=== PATIENT | female | born 1950 | race Caucasian/White ===

== ENCOUNTER 2021-08-28 10:31 | Outpatient (CLI) | payer MEDICARE, SELFPAY ==
--- NOTE | 2021-08-28 10:30 | RT.EKG_ITS ---
APPROVED REPORT Exam: Resting ECG Reason for Exam: afib Patient Location: O HR:76 bpm ECG Measurements Heart Rate 76 AXIS ND [id number] P [id number] QRSd 117 QRS 88 QT 419 T -38 QTc 472 Conclusion Atrial fibrillation...V-rate 53-110, irreg A-activity Nonspecific intraventricular conduction delay...QRSd >115mS, not LBBB/RBBB
== END 2021-08-28 10:32 | disposition home or self-care (01) ==
LOC: DI.CARD 10:31
PROVIDERS: PCP Nurse Practitioner Family; Visit Provider Internal Medicine Cardiovascular Disease
DX: I48.91 Unspecified atrial fibrillation (principal); I48.92 Unspecified atrial flutter
CPT/HCPCS: 93010

== ENCOUNTER → 2022-03-05 14:44 | Outpatient (BNVA) | payer MEDICARE, SELFPAY | PROVIDERS: PCP Nurse Practitioner Family; Referring Provider Nurse Practitioner Family; Visit Provider Internal Medicine Cardiovascular Disease | DX: I48.91 Unspecified atrial fibrillation (principal) | CPT/HCPCS: 99214 ==

== ENCOUNTER 2022-06-09 13:27 | Emergency (ER) | payer MEDICARE, SELFPAY ==
[2022-06-09] VITALS (21 sets, daily range): BP systolic 101–139; BP diastolic 34–92; PULSE 65–95; RESP 14–23; TEMP 36.5; O2SAT 99
--- NOTE | 2022-06-09 13:30 | RT.EKG_ITS ---
APPROVED REPORT Exam: Resting ECG Reason for Exam: near syncope Patient Location: E HR:90 bpm ECG Measurements Heart Rate 90 AXIS VT [id number] P [id number] QRSd 118 QRS 89 QT 387 T -52 QTc 462 Conclusion Atrial fibrillation...V-rate 71-107, irreg A-activity Nonspecific intraventricular conduction delay...QRSd >115mS, not LBBB/RBBB Repol abnrm suggests ischemia, diffuse leads...ST-T neg, ant/lat/inf
[2022-06-09] MEDS: Lactated Ringers 1,000 ML 1000 ML IV (13:59)
[2022-06-09] MEDS: Ondansetron 4 MG/2 ML VIAL IVP (14:00)
[2022-06-09 14:07] LABS: Abs Immature Grans 0.03 10^3/uL (0.0-0.06); Absolute Basophil Count 0.03 10^3/uL (0.0-0.2); Absolute Eosinophil Count 0.02 10^3/uL (0.0-0.7); Absolute Lymphocyte Count 0.61 10^3/uL (1.2-3.4); Absolute Monocyte Count 0.33 10^3/uL (0.1-0.8); Absolute Neutrophil Count 8.39 10^3/uL (1.2-6.7); Basophils % 0.3; Eosinophils % 0.2; HCT 50.4 % (36.0-46.0); HGB 16.6 g/dL (11.2-15.7); Immature Grans % 0.3; Lymphocytes % 6.5; MCHC 32.9 % (32.0-36.0); MCV 94 fL (80-95); MPV 10.9 fL (8.0-11.0); Monocytes % 3.5; Neutrophils % 89.2; Platelet Count 206 10^3/uL (130-400); RBC 5.36 10^6/uL (3.93-5.22); RDW 12.5 % (11.7-14.6); RDW-SD 42.7 fL; WBC 9.41 10^3/uL (4.4-10.8)
[2022-06-09 14:23] LABS: ALT 49 U/L (14-59); AST 30 U/L (15-37); Albumin 4.4 g/dL (3.4-5.0); Alkaline Phosphatase 114 U/L (46-116); BUN 18 mg/dL (7-18); Bilirubin, Total 1.3 mg/dL (0.2-1.0); CREATININE 0.9 mg/dL (0.55-1.02); Calcium 9.5 mg/dL (8.5-10.1); Chloride 103 mmol/L (98-107); Estimated GFR 68.77 (mL/min/1.73m2); Glucose 135 mg/dL (74-106); Magnesium 2.4 mg/dL (1.8-2.4); Sodium 138 mmol/L (136-145); Troponin I < 50 ng/L (<or=60)
--- NOTE | 2022-06-09 14:41 | ED.GENADUL_ITS ---
Discharge Plan Disposition Patient Disposition: Home Condition: Stable Discharge Details Clinical Impression: Nausea & vomiting, Loose stools, Muscle cramping, Hyperbilirubinemia ED Provider: Dhruv Stanford Home Meds and New Rx's Prescriptions: New ondansetron 4 mg tablet,disintegrating 4 mg PO Q8H PRN (Reason: nausea and vomiting) Qty: 10 0RF Continued Eliquis 5 mg tablet 5 mg PO BID epinephrine 0.3 mg/0.3 mL auto-injector 0.3 mg IM ONCE Qty: 2 0RF Rx Instructions: as a single dose metoprolol succinate 25 mg tablet extended release 24 hr 25 mg PO DAILY Adult 50 Plus Probiotic 4 billion cell capsule 4,000 mmu cells PO DAILY Rx Instructions: administer with a meal No Action methyl guard tablet PO DAILY terrazyme PO omega 1-owo-pom-fish oil [Fish Oil] 1,000 mg (120 mg-180 mg) capsule 2 cap PO DAILY Discharge Instructions Instructions: Acute Nausea and Vomiting (ED), Acute Diarrhea (ED) Additional Instructions: Please use Zofran as prescribed for nausea. Drink small amounts of clear liquid fluid frequently in order to stay hydrated. You have to replete all fluid lost in your diarrhea. Allow for bowel rest: Maintain clear liquid diet tonight and tomorrow morning. You may advance to soft bland foods like rice tomorrow afternoon. Advance diet slowly thereafter. Please contact your primary care physician to arrange follow-up. Your bilirubin was slightly elevated today. You should have this rechecked. Return to the ER immediately for any worsening or new concerning symptoms. Discharge Data Discharge Date/Time-TO BE ENTERED AT DEPARTURE: 06/09/22 15:39 Medical Decision Making 0127 -- 72-year-old female with history of atrial fibrillation, atrial flutter, here with nausea, vomiting and diarrhea this morning and now cramping bilateral lower extremities. Patient had a presyncopal episode as well. Patient states she has had similar episodes commonly in the past with dehydration. Patient is hemodynamically stable. She is mentating well and in no respiratory distress. Screening EKG was reviewed and interpreted by me: Please report, atrial fibrillation, rate controlled 90 bpm. Consider electrolyte abnormalities. Labs reviewed and electrolytes appear within normal limits. Bilirubin is slightly elevated at 1.3. Patient receiving IV fluid bolus. She received Zofran IV for nausea. She did experience some cramping in her feet here in the emergency department. I will give Valium 2 mg p.o. -- Patient reassessed and feeling much better. Cramps improved. All results were discussed with the patient. Plan for discharge with outpatient follow-up. Patient was encouraged to drink small amounts of clear fluids to stay hydrated. Usual customary discharge instructions were reviewed HPI General Mode of arrival: ambulatory . Date/Time Provider Initiated Documentation: 06/09/22 13:47 . Limitations to Documentation: no limitations . Information obtained by: patient . HPI Narrative: 72-year-old female presents with chief complaint of leg cramps. Patient notes earlier this morning around 2 AM she woke up and had diarrhea. Later in the morning she experienced nausea and vomiting. She then developed severe cramps in her lower extremities. She went to the bathroom and felt faint while on the toilet. She transitioned herself to the floor and dizziness improved. Patient notes yesterday she was feeling a bit tired in the afternoon evening but otherwise had no GI symptoms. No recent dietary changes. No new medications. Patient is aware of GI bug going around in the community. Related Data Home Medications Medication Instructions Recorded Confirmed apixaban 5 mg tablet (Eliquis) 5 mg PO BID 06/29/20 06/09/22 epinephrine 0.3 mg/0.3 mL 0.3 mg (0.3 mL) IM ONCE #2 ea 06/29/20 06/09/22 injection, auto-injector omega 9-bnn-cqj-fish oil 1,000 mg 2 cap PO DAILY 07/05/21 04/29/22 (120 mg-180 mg) capsule (Fish Oil) lactobacillus combination no.9 4 4,000 mmu cells PO DAILY 08/28/21 06/09/22 billion cell capsule (Adult 50 Plus Probiotic) methyl guard PO DAILY 08/28/21 04/29/22 metoprolol succinate 25 mg 25 mg PO DAILY 08/28/21 06/09/22 tablet,extended release 24 hr terrazyme PO 08/28/21 04/29/22 ondansetron 4 mg disintegrating 4 mg PO Q8H PRN nausea and 06/09/22 tablet vomiting #10 tabs Previous Rx's Medication Instructions Recorded epinephrine 0.3 mg/0.3 mL 0.3 mg (0.3 mL) IM ONCE #2 ea 06/29/20 injection, auto-injector ondansetron 4 mg disintegrating 4 mg PO Q8H PRN nausea and 06/09/22 tablet vomiting #10 tabs Allergies Allergy/AdvReac Type Severity Reaction Status Date / Time No Known Allergies Allergy Verified 06/09/22 13:33 General Stated Complaint: Nausea/Vomit/Diar [place]: 3 Review of Systems All systems reviewed & are unremarkable except as noted in HPI and below Constitutional Constitutional: Denies fever(s) Cardiovascular Cardiovascular: Denies chest pain and Denies dyspnea Respiratory Respiratory: Denies dyspnea Gastrointestinal Gastrointestinal: Reports as per HPI Musculoskeletal Musculoskeletal: Reports muscle cramps (in feet bilaterally) PFSH All Active Problems (Updated 06/09/22 @ 15:25 by Dhruv Stanford MD) Nausea & vomiting (Acute) Loose stools (Acute) Muscle cramping (Acute) Hyperbilirubinemia (Acute) Foreign body in left ear (Acute) Impacted cerumen of both ears (Acute) Atrial flutter (Acute) Afib (Chronic) 02/17 cardioversion Tinnitus, bilateral (Acute) Sensorineural hearing loss of combined sites, bilateral (Acute) Family History Sister Atrial fibrillation and flutter Granddaughter No problems noted. Brother Heart disease OR as well as grandfather OR at 50 Social History Smoking/Tobacco Use Status: Never Smoking risk assessment performed?: Yes Alcohol Intake: current Alcohol Intake frequency: holidays/special occasions only Drug use: Never Substance use type: does not use Household members: spouse Do you feel safe at home: Yes Do you feel safe in your relationship?: Yes Exam Const General: cooperative and no acute distress HENMT Mouth: mucous membranes dry Eyes Conjunctivae: normal conjunctivae Sclera: normal sclerae Neck Neck: trachea midline and supple Resp Auscultation: clear to auscultation bilaterally, no rales, no rhonchi and no wheezes Cardio Rate: regular rate and not tachycardic Rhythm: regular rhythm Heart Sounds: S1 normal, S2 normal and no murmurs Pulses: dorsalis pedis present bilaterally 1+ GI Palpation: soft, not firm, no guarding, no masses, not rigid and nontender Skin General skin exam: no rashes or lesions noted Neuro General: patient alert, patient awake and tone normal Extrem General: no edema Psych Appearance: grossly normal Mental Status: mental status grossly normal Course Vital Signs Vital signs: Vital Signs Temperature 36.5 C 06/09/22 13:24 Pulse 86 06/09/22 13:24 Respiratory Rate 16 06/09/22 13:24 Blood Pressure 139/92 H 06/09/22 13:24 Pulse Oximetry 99 06/09/22 13:24 Temperature 36.5 C 06/09/22 13:24 Temperature Source Oral 06/09/22 13:24 Pulse 86 06/09/22 13:24 Respiratory Rate 16 06/09/22 13:24 Respiratory Effort Normal 06/09/22 13:32 Blood Pressure 139/92 H 06/09/22 13:24 Blood Pressure Position Sitting 06/09/22 13:24 Pulse Oximetry 99 06/09/22 13:24 Oxygen Delivery Method Room Air 06/09/22 13:24 Oxygen Flow Rate 0 06/09/22 13:24 Pain Level 0 06/09/22 13:24 Lab/Test Results Lab/Test Results: Laboratory Tests Range/Units 06/09/22 06/09/22 13:30 13:30 WBC (4.4-10.8) 10^3/uL 9.41 RBC (3.93-5.22) 10^6/uL 5.36 H Hgb (11.2-15.7) g/dL 16.6 H Hct (36.0-46.0) % 50.4 H MCV (80-95) fL 94 MCH (27.0-33.0) pg 31.0 MCHC (32.0-36.0) % 32.9 RDW (11.7-14.6) % 12.5 Plt Count (130-400) 10^3/uL 206 MPV (8.0-11.0) fL 10.9 Immature Gran % 0.3 Neutrophils % 89.2 Lymphocytes % 6.5 Monocytes % 3.5 Eosinophils % 0.2 Basophils % 0.3 Nucleated RBC % (0.0-0.3) % 0.0 Absolute Neutrophils (1.2-6.7) 10^3/uL 8.39 H Absolute Lymphocytes (1.2-3.4) 10^3/uL 0.61 L Absolute Monocytes (0.1-0.8) 10^3/uL 0.33 Absolute Eosinophils (0.0-0.7) 10^3/uL 0.02 Absolute Basophils (0.0-0.2) 10^3/uL 0.03 Sodium (136-145) mmol/L 138 Potassium (3.5-5.1) mmol/L 4.0 Chloride (98-107) mmol/L 103 Carbon Dioxide (21.0-32.0) mmol/L 26.0 Anion Gap (3-11) mmol/L 9.0 BUN (7-18) mg/dL 18 Creatinine (0.55-1.02) mg/dL 0.9 Est GFR (CKD-EPI 2020) (mL/min/1.73m2) 68.77 Glucose (74-106) mg/dL 135 H Calcium (8.5-10.1) mg/dL 9.5 Magnesium (1.8-2.4) mg/dL 2.4 Total Bilirubin (0.2-1.0) mg/dL 1.3 H AST (15-37) U/L 30 ALT (14-59) U/L 49 Alkaline Phosphatase (46-116) U/L 114 Troponin I (<or=60) ng/L < 50 Total Protein (6.4-8.2) g/dL 8.0 Albumin (3.4-5.0) g/dL 4.4 PAWSS Have you Been Recently Intoxicated or Drunk Within the Last 30 days?: No Have you Ever Experienced Previous Episodes of Alcohol Withdrawal?: No Have you ever Experienced Withdrawal Seizures?: No Have you ever Experienced Delirium Tremens(DT)s?: No Have you ever undergone Alcohol Rehabilitation Treatment (i.e, inpt ot outpatient treatment programs)?: No Have you ever Experienced Blackouts?: No Have you ever Combined Alcohol with other Downers within the last 90 days?: No Have you ever Combined Alcohol with any other Substance of Abuse during the last 90 days?: No Result: 0
[2022-06-09] MEDS: diazePAM 2 MG TAB PO (14:47)
[2022-06-09] MEDS: Lactated Ringers 500 ML IV (14:57)
== END 2022-06-09 15:39 | disposition home or self-care (01) ==
PROVIDERS: Emergency Provider Student in an Organized Health Care Education/Training Program
DX: R11.2 Nausea with vomiting, unspecified (principal); R19.7 Diarrhea, unspecified; R25.2 Cramp and spasm; E80.6 Other disorders of bilirubin metabolism; R55 Syncope and collapse
CPT/HCPCS: 80053; 93005; 96361; 96374; 99284; 83735; 84484; 85025; 93010; J2405

== ENCOUNTER → 2023-12-10 13:19 | Outpatient (BNVA) | payer MEDICARE, SELFPAY | PROVIDERS: Visit Provider Physical Therapy Assistant | DX: Z12.11 Encounter for screening for malignant neoplasm of colon (principal); Z80.0 Family history of malignant neoplasm of digestive organs ==

== ENCOUNTER 2023-12-25 07:03 | Day surgery (SDC) | payer MEDICARE, SELFPAY ==
--- NOTE | 2023-12-24 18:12 | W.PM.DSUDISC ---
Date of service: 12/25/23 Time of Service: 08:55 Discharge Plan Disposition Patient Disposition: Home Condition: Good Discharge Details Reason For Visit: screening colonoscopy Attending Provider: Lamberto Ramos Home Meds and New Rx's Prescriptions: Continued epinephrine 0.3 mg/0.3 mL auto-injector 0.3 mg IM ONCE Qty: 2 0RF Rx Instructions: as a single dose Adult 50 Plus Probiotic 4 billion cell capsule 4,000 mmu cells PO DAILY Rx Instructions: administer with a meal omega 2-wbg-vbc-fish oil [Fish Oil] 1,000 mg (120 mg-180 mg) capsule 2 cap PO DAILY Held Eliquis 5 mg tablet 5 mg PO BID Hold Instructions: Resume on 12/26/23. Discontinued bisacodyl [Dulcolax (bisacodyl)] 5 mg tablet,delayed release (DR/EC) 5 mg PO ONCE Qty: 4 0RF Rx Instructions: Take per colonoscopy instructions provided by ordering providers office polyethylene glycol 3350 17 gram/dose powder 17 g PO ONCE Qty: 238 0RF Rx Instructions: Take per colonoscopy instructions provided by ordering providers office Discharge Instructions Instructions: Colon polyps Additional Instructions: Ai, was a pleasure meeting you today, and I hope you are comfortable during the colonoscopy. I did find and remove a single polyp today. Will be sent off for testing, because the nature of polyps determines the timing of your next colonoscopy. These results will take about a week or 2 before they are available, but as soon as the office has that, we will be in touch. I would like you to hold your Eliquis until tomorrow. Then resume taking it as you normally do. If you need anything, or have any questions at all, please do not hesitate to ask. 1. If tolerated, consume a soft, low fiber diet for 1-2 days. 2[address] Do not drive, drink alcohol, operate machinery, make critical decisions, or do activities that require coordination or balance for 24 hours. 3. Because air was put into your colon during the procedure, expelling air from your rectum (passing gas or farting) is normal. 4. You may not have a bowel movement for 1-3 days because of the colonoscopy prep. This is normal. 5. Go directly to the emergency room if you notice any of the following: Develop chills (warm to touch), or if you have a thermometer and your temperature is above 101 Difficulty breathing or difficultly swallowing Persistent vomiting Severe abdominal pain, other than gas cramps Severe chest pain Black, tarry stools Any bleeding ? exceeding one tablespoon 6. Call your physician if the site where your intravenous was started becomes red, swollen, painful, and warm to touch. 7. Your physician has reviewed your pre-procedure medications. Please continue to take those medications as previously ordered. You will be given specific information/education regarding any changes to your medications before leaving. Activity:: Activity as Tolerated Diet:: As Tolerated Discharge Orders Discharge Orders: Discharge Order (Routine); Ordered 12/24/23 Ordered By: Lamberto Ramos
--- NOTE | 2023-12-24 18:13 | COLE_ITS ---
Date of service: 12/25/23 Time of Service: 08:59 Colonoscopy Report Date of procedure: 12/25/23 Pre-op diagnosis general: screening colonoscopy Post-op diagnosis procedure note: other (Ascending colon polyp) Procedure: colonoscopy with polypectomy Surgeon: Lamberto Ramos Anesthesia Type: General:No Airway Estimated blood loss (mL): 5 Pathology: other (0.5 cm pedunculated ascending colon polyp) Complications: None Disposition: same day Indications: Ai is a 73 year old woman who needs her next screening colonoscopy Prep: Miralax/Dulcolax Procedure Start Time: 08:31 Procedure End Time: 08:50 Retraction Time: 11 Findings: 0.5 cm pedunculated ascending colon polyp Procedure Description: After the induction of anesthesia, and with the patient in left lateral decubitus position, I began by performing an external anorectal exam.? Perineum and skin were normal, as was the anal verge.? There was no evidence of external hemorrhoids.? Next, I performed a digital rectal exam.? I did not appreciate any abnormal findings.? Next, I advanced a colonoscope into the rectal vault.? I performed retroflexion.? This appeared normal.? Using insufflation, I then advanced the colonoscope beyond the rectal folds and into the sigmoid colon before advancing towards the cecum.? The quality of the prep was excellent.? The scope was noted to be in the cecum by identification of the ileocecal valve and appendiceal orifice.? I then began withdrawing the colonoscope using repeated irrigation as necessary for full evaluation of the colonic mucosa. Few centimeters away from the ileocecal valve was a 0.5 cm pedunculated polyp. This was removed with a energize snare polypectomy. There is minimal bleeding. ?Once the scope was withdrawn to the level of the rectum, great care was taken to examine portions of the rectal folds.? Finally, the scope was withdrawn and the patient was brought to the same-day surgery recovery unit as the anesthetic wore off. ?The findings and instructions were shared with the patient prior to discharge. Leisenring Bowel Prep Leisenring Bowel Prep Right Colon: 3 Left Colon: 3 Transverse Colon: 3 Total Score: 9
[2023-12-25 07:27] VITALS: BP 122/97; PULSE 93; RESP 16; TEMP 36; O2SAT 99
[2023-12-25] MEDS: Lactated Ringers 1,000 ML 80 ML IV (07:39)
--- NOTE | 2023-12-25 08:03 | W.ANESPRE ---
General Info Date of Service Date Performed: 12/25/23 Height: 5 ft 8 in Weight: 58.9 kg Body Mass Index (BMI): 19.7 Surgical Procedure: Operation Date: 12/25/23 08:35 Proposed Procedure Side Surgeon dante Ramos MD Meds Allergies and Home Medications Allergies Allergy/AdvReac Type Severity Reaction Status Date / Time lobster Allergy Intermediate GI issues Verified 12/25/23 07:24 - vomit/diarrhea Home Medication ?Medication ?Instructions ?Recorded apixaban 5 mg tablet (Eliquis) 5 mg PO BID 06/29/20 epinephrine 0.3 mg/0.3 mL 0.3 mg (0.3 mL) IM ONCE #2 ea 06/29/20 injection, auto-injector omega 0-rhp-kfe-fish oil 1,000 mg 2 cap PO DAILY 07/05/21 (120 mg-180 mg) capsule (Fish Oil) lactobacillus combination no.9 4 4,000 mmu cells PO DAILY 08/28/21 billion cell capsule (Adult 50 Plus Probiotic) Current Visit Medications: Current Medications Generic Name Dose Route Start Last Admin Trade Name Freq PRN Reason Stop Dose Admin Ringer's Solution 1,000 mls @ 80 mls/hr 12/25/23 06:00 12/25/23 07:39 IV 12/25/23 23:59 80 mls/hr INFUSION SHEEBA Administration IV Miscellaneous Supplies 1 each 12/25/23 06:00 Iv Access IV 12/25/23 23:59 DIRECTED SHEEBA Ondansetron HCl 4 mg 12/24/23 18:14 Ondansetron 4 Mg/2 Ml Vial IVP 01/23/24 18:13 Q4H PRN PRN Nausea / Vomiting Sodium Chloride 0 ml 12/25/23 06:00 Normal Saline Flush 10 Ml Syr IV 12/25/23 23:59 PRN PRN Sodium Chloride 0 ml 12/25/23 06:00 Normal Saline 10 Ml Vial IJ 12/25/23 23:59 DIRECTED PRN Sterile Water 0 ml 12/25/23 06:00 Water,Injection,Sterile 10 Ml Vial IJ 12/25/23 23:59 DIRECTED PRN PFSH Active Problems Active Problems: Problem Status Onset Code Foreign body in left ear Acute T16.2XXA Impacted cerumen of both ears Acute H61.23 Atrial flutter Acute I48.92 Afib Chronic I48.91 Tinnitus, bilateral Acute H93.13 Sensorineural hearing loss of combined sites, bilateral Acute H90.3 Medical History Medical History Vitamin D deficiency Surgical History Surgical History History of laparoscopy intraperitoneal procedures in lower abdomen including laparoscopy; tubal ligation/transection 1981 Hx of tonsillectomy (~1972) History of hysterectomy 1989 H/O lumpectomy 1990 Hx of cholecystectomy 03/30/2006 History of colonoscopy 03/30/2014 Tobacco Smoking/Tobacco Use Status: Never Alcohol Alcohol Intake: current Alcohol intake frequency: a few times a week Alcohol type: hard liquor Substance Use Substance use: Never Substance use type: does not use Details: alcohol: t-5 Vital Signs and Lab Results Vital Signs Most Recent Vital Signs in EMR: Most Recent Vital Signs Temp Pulse Resp BP Pulse Ox 36.0 C L 93 H 16 122/97 H 99 12/25/23 07:27 12/25/23 07:27 12/25/23 07:27 12/25/23 07:27 12/25/23 07:27 Lab Results Blood Type / Crossmatch: No Data to Display Complete Blood Count: No Data to Display Complete Metabolic Panel: No Data to Display Liver Function Panel: No Data to Display Coagulation Panel: No Data to Display Cardiac Panel: No Data to Display Arterial Blood Gas: No Data to Display Venous Blood Gas: No Data to Display Pancreas Panel: No Data to Display Thyroid Panel: No Data to Display Infectious Disease: No Data to Display Blood Cultures: No Data to Display Toxicology Panel: No Data to Display Imaging and Studies Imaging and Studies Study information below may be from another EMR and interpreted by another provider. Please see original notes in EMR for more complete details. EKG Summary: 06/09/22 Conclusion Atrial fibrillation...V-rate 71-107, irreg A-activity Nonspecific intraventricular conduction delay...QRSd >115mS, not LBBB/RBBB Repol abnrm suggests ischemia, diffuse leads...ST-T neg, ant/lat/inf Anesthesia Assessment and Plan Anesthesia History Personal History: No History of Anesthesia Complications Family History: No Family History of Anesthesia Complications Exercise Tolerance Exercise Tolerance: Metabolic Equivalents>4 Pertinent Negatives Pertinent Negatives: No Symptoms of GERD, No Major Cardiovascular Symptoms or Complaints, No Major Pulmonary Symptoms or Complaints and No History of CVA/TIA Cardiac & Pulmonary Exam Cardiac Exam: Normal S1/S2 Heart Sounds Pulmonary Exam: Clear Bilateral Breath Sounds Implantable Cardiac Device Does patient have a Pacemaker or an ICD?: No Airway Exam Known Difficult Airway: No Mallampati Class: 2 Mouth Opening: Normal (> 3cm) Thyromental Distance: Greater than 3 cm Neck Range of Motion: Full ROM Neck Circumference: Normal Teeth Condition: Normal Dentition ASA Classification ASA Score: ASA 2 Emergency Case?: No NPO Status NPO Status: NPO Clears >2 hours, Solids >8 hours Anesthesia Plan Resuscitation Status: Full Code Anesthesia Technique: General Anesthesia Airway Planned: Natural Airway Monitors Used: Standard Monitors
[2023-12-25 08:13] VITALS: BMI 19.7
--- NOTE | 2023-12-25 08:42 | BOWEL_PTH ---
PATIENT: Ai Her LOC: [facility] U#:[id number] AGE/SX: 73/F ROOM: RE12/25/[address]: Lamberto Ramos MD : 1950 BED: DIS: 12/25/2023 SPEC #: [id number] RECD: 12/25/23 11:56 STATUS: DANIELLE RE #: [id number] YOAN: 12/25/23 08:[address]: Lamberto Ramos DEPT: Surgical Specimen RECD BY: Cely Mccartney Tissues: 1 - BIOPSY BOWEL Procedures: GROSS AND MICRO LEVEL 4 Comments: [id number]
[2023-12-25 08:58] VITALS: BP 102/73; PULSE 83; RESP 16; TEMP 36.4; O2SAT 98
--- NOTE | 2023-12-25 09:27 | W.ANESPOSTOP ---
Postoperative Evaluation Date, Time and Location Date Performed: 12/25/23 Time Performed: 09:06 Patient Location: Day Surgery Unit Vital Signs Most Recent Imported Vital Signs: Most Recent Vital Signs Temp Pulse Resp BP Pulse Ox 36.4 C L 83 16 102/73 98 12/25/23 08:58 12/25/23 08:58 12/25/23 08:58 12/25/23 08:58 12/25/23 08:58 Pain Score Most Recent Pain Score: Most Recent Pain Score Pain Level 0 12/25/23 08:58 Assessment Mental Status: Awake (Alert & Oriented to Patient Baseline) Airway and Respiratory Function: Patent airway with normal (patient baseline) respiratory exam Cardiovascular Function: Hemodynamically Stable Hydration Status: Adequately Hydrated Nausea & Vomiting: No Nausea or Vomiting Pain: Pt. Denies Any Pain Peripheral Nerve Block: Patient did not receive a nerve block
[2023-12-25 09:30] VITALS: BP 118/84; PULSE 85; RESP 16; TEMP 36; O2SAT 98
== END 2023-12-25 09:45 | disposition home or self-care (01) ==
LOC: SUR 07:04
PROVIDERS: Visit Provider Surgery
PROC: 0DJD8ZZ Inspection of Lower Intestinal Tract, Via Natural or Artificial Opening Endoscopic (ICD-10-PCS; CPT 45378; principal; 2023-12-25 08:30)
DX: Z12.11 Encounter for screening for malignant neoplasm of colon (principal); D12.2 Benign neoplasm of ascending colon
CPT/HCPCS: 45385; 88305; J2405; J2704